=== PATIENT | female | born 1995 | race Hispanic/Latino ===

== ENCOUNTER 2017-01-14 21:22 | Emergency (ER) | payer BC, SELFPAY ==
[2017-01-14 21:38] LABS: Bilirubin Negative (Negative); Blood, Urine Large (Negative); Glucose, Urine (Dipstick) Negative (Negative); Ketone, Urine Negative (Negative); Nitrite Positive (Negative); Protein, Urine (Dipstick) 100 mg/dL (Neg-Trace)
[2017-01-14 21:43] LABS: Bacteria/HPF 2+ HPF (None Seen); Oval Fat Bodies/HPF 1+ HPF (None Seen)
[2017-01-14] MEDS ORDERED: cefTRIAXone\\ROCEPHIN 1 GM VIAL ONE (22:36)
[2017-01-14] MEDS ORDERED: Ondansetron HCl/PF 4 MG/2 ML Vial ONE (22:36)
[2017-01-14] MEDS ORDERED: Ketorolac Tromethamine 30 MG/ML VIAL ONE (22:36)
[2017-01-14 22:39] LABS: #Eosinphils 0.2 thou/uL (0.0-0.7); #Lymphocytes 2.5 thou/uL (1.20-3.40); #Monocytes 0.9 thou/uL (0.11-0.59); #Neutrophils 10.4 thou/uL (1.40-6.50); %Basophils 0.3 % (0.0-1.0); %Eosinophils 1.3 % (0.0-10.0); %Lymphocytes 17.8 % (21.0-51.0); %Monocytes 6.6 % (0.0-10.0); Hematocrit 39.9 % (36.0-47.0); Mean Platelet Volume 5.8 fL (7.4-10.4); Red Blood Cell (RBC) Count 4.38 mill/uL (4.20-5.40)
[2017-01-14 22:55] LABS: ALT (SGPT) 22 U/L (8-55); AST (SGOT) 14 U/L (5-34); Alkaline Phosphatase 85 U/L (40-150); Anion Gap 14 mmol/L (10-20); BUN (Urea Nitrogen) 7 mg/dL (7.0-18.7); Bilirubin, Total 0.4 mg/dL (0.2-1.2); Calc. Creatinine Clearance 0 mL/min (70-130); Calcium 9.8 mg/dL (7.8-10.44); Carbon Dioxide 25 mmol/L (22-29); Chloride 105 mmol/L (98-107); Estimated GFR-MDRD Greater than 90; Globulin 4.1 g/dL (2.4-3.5); Protein, Total 7.8 g/dL (6.0-8.3)
== END 2017-01-15 00:05 | disposition home or self-care (01) ==
LOC: SCSER 21:22
DX: N39.0 Urinary tract infection, site not specified (principal)
CPT/HCPCS: 80053; 81003; 81015; 81025; 85025; 87077; 87086; 87186; 96361; 96365; 96372; 96375; J0696; J1885; J2270; J2405

== ENCOUNTER 2017-04-18 12:54 | Emergency (ER) | payer BC ==
[~2017-04-18 12:54] MED LIST: Iopamidol 370 76% 100 ML VIAL ONE
[2017-04-18 13:44] LABS: Bilirubin Negative (Negative); Blood, Urine Negative (Negative); Clarity Slightly Cloudy (Clear); Glucose, Urine (Dipstick) Negative (Negative); Leukocyte Trace (Negative); Nitrite Negative (Negative); Protein, Urine (Dipstick) Negative (Neg-Trace); Specific Gravity, Urine 1.015 (1.005-1.030); Urobilinogen 0.2 mg/dL (0.2-1.0)
[2017-04-18 13:47] LABS: Bacteria/HPF 2+ HPF (None Seen); RBC/HPF 0-3 HPF (0-3)
[2017-04-18 14:02] LABS: BHCG - Serum Negative (NEGATIVE); Pregs Control Background? CLEAR/WHITE (CLR/WHITE); Pregs Control Bar Appear? YES (CONTROL BAR)
[2017-04-18 14:10] LABS: Hemoglobin 14.1 g/dL (12.0-16.0); Mean Corpuscular HGB CONC 34.5 g/dL (32.0-36.0); Mean Corpuscular Hemoglobin 30.4 pg (27.0-31.0); Mean Corpuscular Volume 88.2 fl (81.0-99.0); Mean Platelet Volume 6.6 fL (7.4-10.4); Platelet Count 330 thou/uL (130-400); RBC Distribution Width 12.1 % (11.5-14.5); Red Blood Cell (RBC) Count 4.63 mill/uL (4.20-5.40)
[2017-04-18 14:11] LABS: Band 6 % (5-11); Lymphocytes 31 % (21-51); MDiff Complete? YES; Monocytes 2 % (0-10); Neutrophil 56 % (42-75); PLT Morphology Comment Appears Adequate; Reactive Lymphocytes 5 % (0-10); Vacuoles SLIGHT
[2017-04-18] MEDS ORDERED: Ketorolac Tromethamine 30 MG/ML VIAL ONE (14:11)
[2017-04-18] MEDS ORDERED: Ondansetron HCl/PF 4 MG/2 ML Vial ONE (14:11)
[2017-04-18 14:27] LABS: ALT (SGPT) 46 U/L (8-55); AST (SGOT) 28 U/L (5-34); Albumin 3.9 g/dL (3.5-5.0); Alkaline Phosphatase 70 U/L (40-150); Anion Gap 15 mmol/L (10-20); BUN (Urea Nitrogen) 8 mg/dL (7.0-18.7); Bilirubin, Total 0.4 mg/dL (0.2-1.2); Calc. Creatinine Clearance 0 mL/min (70-130); Calcium 10.2 mg/dL (7.8-10.44); Carbon Dioxide 27 mmol/L (22-29); Chloride 102 mmol/L (98-107); Estimated GFR-MDRD Greater than 90; Globulin 4.2 g/dL (2.4-3.5); Glucose 103 mg/dL (70-105); Potassium 3.8 mmol/L (3.5-5.1); Protein, Total 8.1 g/dL (6.0-8.3); Sodium 140 mmol/L (136-145)
--- NOTE | 2017-04-18 15:14 | CT ---
CT ABDOMEN AND PELVIS WITH IV CONTRAST: HISTORY: Abdominal pain. COMPARISON: 03/16/11. FINDINGS: Lung bases are clear. The liver, spleen, kidneys, adrenal glands, and pancreas are within normal ho its. Urinary bladder is unremarkable. Lack of oral contrast limits evaluation of the bowel. There is no evidence of obstruction. Appendix is not inflamed. Minimal free fluid is present within the pelvis. IMPRESSION: No significant abnormalities are demonstrated. POS: [facility]
== END 2017-04-18 15:45 | disposition home or self-care (01) ==
LOC: SCSER 12:54
DX: R10.31 Right lower quadrant pain (principal)
CPT/HCPCS: 74177; 80053; 81003; 81015; 84703; 85025; 87077; 87086; 96361; 96374; J1885; J2405

== ENCOUNTER 2017-12-06 14:51 | Emergency (ER) | payer BC ==
[2017-12-06 15:10] LABS: Bilirubin Negative (Negative); Blood, Urine Negative (Negative); Clarity Clear (Clear); Glucose, Urine (Dipstick) Negative (Negative); Leukocyte Negative (Negative); Nitrite Negative (Negative); Protein, Urine (Dipstick) Negative (Neg-Trace); Urobilinogen 0.2 mg/dL (0.2-1.0)
[2017-12-06 15:11] LABS: Pregnancy Test - Urine (BHCG) Negative (Negative); Pregu Control Background? CLEAR/WHITE (CLR/WHITE); Pregu Control Bar Appear? YES (CONTROL BAR)
[2017-12-06] MEDS ORDERED: Ketorolac Tromethamine 30 MG/ML VIAL ONE (15:55)
[2017-12-06 16:15] LABS: #Eosinphils 0.2 thou/uL (0.0-0.7); #Monocytes 0.4 thou/uL (0.11-0.59); #Neutrophils 3.5 thou/uL (1.40-6.50); %Basophils 0.5 % (0.0-1.0); %Eosinophils 2.1 % (0.0-10.0); %Lymphocytes 41.8 % (21.0-51.0); %Monocytes 5.7 % (0.0-10.0); %Neutrophils 49.9 % (42.0-75.0); Hemoglobin 13.8 g/dL (12.0-16.0); Mean Corpuscular HGB CONC 33.7 g/dL (32.0-36.0); Mean Corpuscular Hemoglobin 29.9 pg (27.0-31.0); Mean Corpuscular Volume 88.9 fL (78.0-98.0); Mean Platelet Volume 7.1 fL (7.4-10.4); Platelet Count 301 thou/uL (130-400); RBC Distribution Width 11.8 % (11.5-14.5); White Blood Cell (WBC) Count 7.1 thou/uL (4.8-10.8)
[2017-12-06 16:39] LABS: ALT (SGPT) 47 U/L (8-55); AST (SGOT) 27 U/L (5-34); Alkaline Phosphatase 75 U/L (40-150); Anion Gap 14 mmol/L (10-20); BUN (Urea Nitrogen) 8 mg/dL (7.0-18.7); Bilirubin, Total 0.6 mg/dL (0.2-1.2); Calc. Creatinine Clearance 0 mL/min (70-130); Carbon Dioxide 25 mmol/L (22-29); Chloride 106 mmol/L (98-107); Estimated GFR-MDRD Greater than 90; Globulin 4.2 g/dL (2.4-3.5); Glucose 113 mg/dL (70-105); Lipase 30 U/L (8-78); Potassium 3.6 mmol/L (3.5-5.1); Protein, Total 8.2 g/dL (6.0-8.3); Sodium 141 mmol/L (136-145)
--- NOTE | 2017-12-06 16:58 | CT ---
CT ABDOMEN AND PELVIS WITH IV CONTRAST: 12/06/17 HISTORY: Abdomen and pelvic pain. COMPARISON: 04/18/17. FINDINGS: Lung bases are clear. The liver, spleen, kidneys, adrenal glands, and pancreas have a normal CT appea garret. No enlarged lymph nodes or free fluid. Urinary bladder is unremarkable. Appendix is not inflam ed. IMPRESSION: No significant abnormalities are demonstrated. POS: [facility]
== END 2017-12-06 17:17 | disposition home or self-care (01) ==
LOC: SCSER 14:51
DX: M54.5 Low back pain (principal); R10.32 Left lower quadrant pain
CPT/HCPCS: 74177; 80053; 81003; 81025; 83690; 85025; 96361; 96374; J1885

== ENCOUNTER 2019-03-06 19:10 | Emergency (ER) | payer BC, SELFPAY ==
[2019-03-06 19:57] LABS: #Eosinphils 0.1 thou/uL (0.0-0.7); #Lymphocytes 2.4 thou/uL (1.20-3.40); #Monocytes 0.7 thou/uL (0.11-0.59); #Neutrophils 3.7 thou/uL (1.40-6.50); %Basophils 0.1 % (0.0-1.0); %Eosinophils 1.2 % (0.0-10.0); %Lymphocytes 34.6 % (21.0-51.0); %Monocytes 9.5 % (0.0-10.0); %Neutrophils 54.6 % (42.0-75.0); Hemoglobin 12.8 g/dL (12.0-16.0); Mean Corpuscular HGB CONC 34.3 g/dL (32.0-36.0); Mean Corpuscular Hemoglobin 30.6 pg (27.0-31.0); Mean Corpuscular Volume 89.2 fL (78.0-98.0); Mean Platelet Volume 6.5 fL (7.4-10.4); Platelet Count 271 thou/uL (130-400); RBC Distribution Width 11.7 % (11.5-14.5); Red Blood Cell (RBC) Count 4.17 mill/uL (4.20-5.40); White Blood Cell (WBC) Count 6.8 thou/uL (4.8-10.8)
[2019-03-06 20:04] LABS: BHCG - Serum POSITIVE (NEGATIVE); Pregs Control Background? CLEAR/WHITE (CLR/WHITE); Pregs Control Bar Appear? YES (CONTROL BAR)
[2019-03-06 20:17] LABS: ALT (SGPT) 16 U/L (8-55); AST (SGOT) 12 U/L (5-34); Albumin 3.4 g/dL (3.5-5.0); Alkaline Phosphatase 50 U/L (40-110); Anion Gap 9 mmol/L (10-20); BUN (Urea Nitrogen) 6 mg/dL (7.0-18.7); Bilirubin, Total 0.5 mg/dL (0.2-1.2); Calc. Creatinine Clearance 0 mL/min (70-130); Calcium 9.3 mg/dL (7.8-10.44); Carbon Dioxide 27 mmol/L (22-29); Chloride 101 mmol/L (98-107); Estimated GFR-MDRD Greater than 90; Globulin 3.6 g/dL (2.4-3.5); Glucose 77 mg/dL (70-105); Lipase 24 U/L (8-78); Potassium 3.8 mmol/L (3.5-5.1); Sodium 133 mmol/L (136-145)
[2019-03-06 21:34] LABS: Bilirubin Negative (Negative); Blood, Urine Negative (Negative); Clarity Clear (Clear); Glucose, Urine (Dipstick) Normal (Negative); Leukocyte Negative Leu/uL (Negative); Nitrite Negative (Negative); Protein, Urine (Dipstick) Negative (Neg-Trace); Urobilinogen 6 mg/dL (Less than 2)
--- NOTE | 2019-03-06 22:33 | ULT ---
US Pelvic W Doppler HISTORY: Right lower quadrant pain. COMPARISON: None. FINDINGS: Real-time imaging of the pelvis was obtained transabdominally. This shows a single viable i ntrauterine . The heart rate is 165 bpm. The crown to rump length measurements are 5.6 cm corresponding to 12 weeks 1 day. Placenta appears be localizing more posterior difficult to as sess at this stage of gestation. The right and left adnexa are normal in appearance. Doppler evaluation with spectral analysis: Normal flow shown to the ovaries. The appendix is not identified. IMPRESSION: Single viable intrauterine crown-rump length measurements of 12 weeks 1 day wit h an estimated date of delivery of 09/17/2019
== END 2019-03-06 23:25 | disposition home or self-care (01) ==
LOC: ERS 19:10
DX: O99.89 Other specified diseases and conditions complicating pregnancy, childbirth and the puerperium (principal); R10.30 Lower abdominal pain, unspecified; Z3A.19 19 weeks gestation of pregnancy
CPT/HCPCS: 36415; 76856; 80053; 81003; 83690; 84702; 84703; 85025; 86900; 86901; 93976

== ENCOUNTER 2019-09-11 06:35 | Outpatient (CLI) | payer OTHER ==
[2019-09-12 12:38] LABS: SARS-CoV-2 MS2 Positive; SARS-CoV-2 N Gene Negative; SARS-CoV-2 S Gene Negative; SARS-CoV-2 orf1ab Negative
== END 2019-09-11 06:36 | disposition home or self-care (01) ==
LOC: LABSCS 06:35
PROVIDERS: ATTEND Obstetrics & Gynecology
DX: Z01.812 Encounter for preprocedural laboratory examination (principal); Z11.59 Encounter for screening for other viral diseases
CPT/HCPCS: 87635; U0003

== ENCOUNTER 2019-09-12 17:44 | Inpatient (IN) | payer OTHER ==
[~2019-09-12 17:44] MED LIST changes: +Bupivacaine 0.25% HCL 30 ML VIAL ONE; -Iopamidol 370 76% 100 ML VIAL ONE
[2019-09-12 18:25] VITALS: BMI 43.3
--- NOTE | 2019-09-12 18:33 | PDOC.FPRHP ---
- Allergies/Adverse Reactions Allergies Allergy/AdvReac Type Severity Reaction Status Date / Time No Known Allergies Allergy Unverified 09/12/19 18:25 - Home Medications Medication Instructions Recorded Confirmed Type Pnv No.103/Folic/Om3s/Fish Oil 1 each PO DAILY 09/12/19 09/12/19 History [ Gummies] - History PMHx: PSHx: FHx: Social: - Vital signs BP: [] HR: [] RR: [] Tmax: [] Pox: []% on [] Wt: [] FMR H&P: Upper Level - Plan Date/Time: 09/12/19 1833 I, [], have evaluated this patient and agree with findings/plan as outlined by civil engineering intern resident. Pertinent changes/additions are listed here.
--- NOTE | 2019-09-12 18:38 | PDOC.LDHP ---
Labor and Delivery H&P Chief complaint: contractions HPI: Pt is a 24 yo at 39.1 wks who presents for contractions starting at 0600 on 09/12/19. Over the last 2 hours she has an increase in contractions, she states every 3-5 mins. She denies LOF, vaginal bleeding, COSTA, SOB, chest pain, LE edema, RUQ pain. Endorsed clear/white discharge. She was checked in the office this previous Saturday and was 1.5 cm. CALIBRATOR BAROMETERS: Marissa GBS Positive Due date: 09/18/19 Grav: 2 Para: 1 OB History Details: Denies significant OB history Prior Term 11 years ago Current complications: none Past Medical History: denies Current medications: pre-natacha vitamins Previous surgical history: none Allergies/Adverse Reactions: Allergies Allergy/AdvReac Type Severity Reaction Status Date / Time No Known Allergies Allergy Unverified 09/12/19 18:25 Social history: none - Physical Exam Vital signs reviewed and normal: yes General: breathing through contractions Heart: RRR Lungs: CTAB Abdomen: NTTP Extremeties: trace edema FHT: category 1 [place] contractions every: q7min - Vaginal Exam cm dilated: 3 Effacement: 50% (60%) Station: -3 - OB Labs Blood type: O RH: positive Antibody Screen: negative HIV: negative RPR: negative HEPSAg: negative GBS: positive Rubella: immune Additional Labs: GCCH negative Pap - Abnormal; ASCUS HPV Positive Genetic Screening: [facility] - Plan Plan: observation in L&D -: Pt is a 24 yo at 39.1 wks who presents for contractions: # Term IUP # Contractions /-3. Cat 1 strip. - recheck in q2hrs. If pt makes change then will keep pt for labor. If no change will send home. She has an induction scheduled for 09/15/19. # GBS Positive - will need penicillin Dispo: observe for progression of labor
--- NOTE | 2019-09-12 19:00 | PDOC.BPN ---
- Brief Progress Note OBGYN Attending Patient in triage, first seen by Dr Atkins Patient of Dr Ann 39 weeks 1 day with scheduled IOL on Saturday CX 3cm...will place iin labor OBS Please see full H&P by Dr Atkins
[2019-09-12] MEDS ORDERED: hydrALAZINE 20 MG/ML VIAL SLOW IVP PRN ×2 (19:11→21:46)
[2019-09-12] MEDS ORDERED: Butorphanol Tartrate 1 MG/ML VIAL ONE (21:07)
[2019-09-12] MEDS ORDERED: Butorphanol Tartrate 1 MG/ML VIAL SLOW IVP SCH (21:15)
[2019-09-12] MEDS ORDERED: Promethazine HCl 25 MG/ML VIAL IM PRN (21:46)
[2019-09-12] MEDS ORDERED: Ondansetron PF 4 MG/2 ML Vial IVP PRN (21:46)
[2019-09-12] MEDS ORDERED: Docusate 100 MG CAP PO PRN (21:46)
[2019-09-12] MEDS ORDERED: Acetaminophen 500 MG TAB PO PRN (21:46)
[2019-09-12] MEDS ORDERED: Butorphanol Tartrate 1 MG/ML VIAL SLOW IVP PRN (21:46)
--- NOTE | 2019-09-12 21:48 | PDOC.BPN ---
- Brief Progress Note CX with slight cervical change to close to 4cm per Dr Atkins. Patient with increased CTX discomfort every 2-3 minutes or so. FHTS reassurring. Vitals wnl WE will direct admit to Dr Ann for 39 week early labor, pain control. GBS pos
[2019-09-12] MEDS ORDERED: Penicillin G Potassium 5 MILL.UNITS in Sodium Chloride 0.9% 100 ML IVPB SCH (22:00)
[2019-09-12 23:44] LABS: Hemoglobin 13.1 g/dL (12.0-16.0); Mean Corpuscular HGB CONC 34.5 g/dL (32.0-36.0); Mean Corpuscular Hemoglobin 31.9 pg (27.0-31.0); Mean Corpuscular Volume 92.7 fL (78.0-98.0); Mean Platelet Volume 7.1 fL (7.4-10.4); Platelet Count 287 thou/uL (130-400); RBC Distribution Width 13.1 % (11.5-14.5); Red Blood Cell (RBC) Count 4.11 mill/uL (4.20-5.40); White Blood Cell (WBC) Count 15.6 thou/uL (4.8-10.8)
[2019-09-13] MEDS ORDERED: Fentanyl 4 mcg/Bup 0.1% Cadd 100 ML ONE (00:13)
[2019-09-13 00:22] LABS: Syphilis Antibody Nonreactive (Nonreactive); Syphilis Antibody Index 0.24 S/CO (<1.00 Non-Reactive)
[2019-09-13 00:25] LABS: HBSAg Index 0.14 S/CO (0-0.99); Hep B Surf Ag Non-Reactive S/CO (NonReactive)
[2019-09-13] MEDS ORDERED: NS / Oxytocin 40 units/1000ml 1,000 ML IV PRN (00:28)
[2019-09-13] MEDS ORDERED: Lidocaine 1% (PF) 30 ML VIAL SC PRN (00:28)
[2019-09-13] MEDS ORDERED: Carboprost 250 MCG/ML AMP IM PRN (00:28)
[2019-09-13] MEDS ORDERED: Misoprostol 200 MCG TAB PR PRN (00:28)
[2019-09-13] MEDS ORDERED: Methylergonovine 0.2 MG/ML VIAL IM PRN ×2 (00:28→08:32)
[2019-09-13] MEDS ORDERED: Ibuprofen 800 MG TAB PO PRN (00:28)
[2019-09-13] MEDS ORDERED: Diphenoxylate HCl/Atropine Tablet PO PRN ×2 (00:28)
[2019-09-13] MEDS ORDERED: Lactated Ringer's 1,000 ML IV SCH (00:30)
[2019-09-13] MEDS ORDERED: Promethazine HCl 25 MG SUPP PR PRN (01:08)
[2019-09-13] MEDS ORDERED: diphenhydrAMINE 25 MG CAP PO PRN ×2 (01:08→08:32)
[2019-09-13] MEDS ORDERED: Naloxone HCl 0.4 mg/ml Vial IVP PRN ×4 (01:08)
[2019-09-13] MEDS ORDERED: Lactated Ringer's 500 ML IV PRN (01:08)
[2019-09-13] MEDS ORDERED: diphenhydrAMINE 50 MG/ML VIAL IM PRN (01:08)
[2019-09-13] MEDS ORDERED: diphenhydrAMINE 50 MG/ML VIAL IVP PRN ×2 (01:08)
[2019-09-13] MEDS ORDERED: Bupivacaine 0.25% 10 ML VIAL EPIDURAL PRN (01:08)
[2019-09-13] MEDS ORDERED: Ketorolac Tromethamine 30 MG/ML VIAL IVP PRN (01:08)
[2019-09-13] MEDS ORDERED: Promethazine HCl 25 MG/ML VIAL IM PRN ×3 (01:08→08:32)
[2019-09-13] MEDS ORDERED: EPHEDRINE 25 MG/5 ML SYRINGE SLOW IVP PRN (01:08)
[2019-09-13] MEDS ORDERED: HYDROcodone/Acetaminophen 5/325 mg Tablet PO PRN ×3 (01:08→08:32)
[2019-09-13] MEDS ORDERED: Acetaminophen 325 MG TAB PO PRN (01:08)
[2019-09-13] MEDS ORDERED: Ondansetron PF 4 MG/2 ML Vial IVP PRN ×3 (01:08→08:32)
[2019-09-13] MEDS ORDERED: Zolpidem Tartrate 5 MG TAB PO PRN ×2 (01:08→08:32)
[2019-09-13] MEDS ORDERED: Fentanyl 4 mcg/Bupivacaine 0.1% Cassette 100 ML EPIDURAL SCH (01:15)
[2019-09-13] MEDS ORDERED: Communication Order-Pharmacy FS SCH ×3 (01:15)
[2019-09-13] MEDS ORDERED: Fentanyl 5 mcg/Bupivacaine 0.075% Cassette 100 ML EPIDURAL SCH (01:15)
[2019-09-13] MEDS: Penicillin G 2.5 MILL.units 2.5 MILL.UNITS in Premix Bag 1 BAG IVPB SCH ×2 (04:03→08:41)
[2019-09-13] MEDS ORDERED: Lidocaine 1% (PF) 30 ML VIAL ONE (04:37)
[2019-09-13] MEDS ORDERED: NS / Oxytocin 40 units/1000ml 1,000 ML ONE (04:37)
[2019-09-13] MEDS ORDERED: hydrALAZINE 20 MG/ML VIAL SLOW IVP PRN (08:32)
[2019-09-13] MEDS ORDERED: Bisacodyl 10 MG SUPP PR PRN (08:32)
[2019-09-13] MEDS ORDERED: Lanolin Ointment 7 GM TUBE TOP PRN (08:32)
[2019-09-13] MEDS ORDERED: NS / Oxytocin 40 units/1000ml 1,000 ML IV SCH (08:32)
[2019-09-13] MEDS ORDERED: Milk Of Magnesia 30 ML UDCUP PO PRN (08:32)
[2019-09-13] MEDS ORDERED: Misoprostol 200 MCG TAB VAG PRN (08:32)
[2019-09-13] MEDS ORDERED: Preparation H Ointment 28 GM TUBE PR PRN (08:32)
[2019-09-13] MEDS ORDERED: Adacel (T-DAP) 0.5 ML SYRINGE IM ONE (08:32)
[2019-09-13] MEDS ORDERED: Measles/Mumps/Rubella 10 MCG/0.5 ML VIAL SC ONE (08:32)
[2019-09-13] MEDS ORDERED: Varicella virus, LIVE 0.5 ML VIAL SC ONE (08:32)
[2019-09-13] MEDS ORDERED: Benzocaine-Menthol 82.5 ML CAN TOP PRN (08:32)
[2019-09-13] MEDS: Docusate Calcium (SURFAK) 240 MG CAP PO SCH ×2 (11:23→21:50)
[2019-09-13] MEDS: Prenatal Vitamin 1 TAB PO SCH (11:24)
[2019-09-13] MEDS: Ibuprofen 800 MG TAB PO SCH ×2 (13:30→21:50)
[2019-09-13] MEDS: Ferrous Sulfate 325 MG TAB PO SCH (14:24)
[2019-09-14 05:13] LABS: Hemoglobin 12.1 g/dL (12.0-16.0); Mean Corpuscular Hemoglobin 32.2 pg (27.0-31.0); Mean Corpuscular Volume 94.9 fL (78.0-98.0); Mean Platelet Volume 6.8 fL (7.4-10.4); Platelet Count 241 thou/uL (130-400); RBC Distribution Width 13.2 % (11.5-14.5); Red Blood Cell (RBC) Count 3.76 mill/uL (4.20-5.40); White Blood Cell (WBC) Count 11.7 thou/uL (4.8-10.8)
[2019-09-14] MEDS: Ibuprofen 800 MG TAB PO SCH (05:24)
[2019-09-14 08:15] VITALS: BP 120/70; TEMP 98.1
[2019-09-14] MEDS: Ferrous Sulfate 325 MG TAB PO SCH (09:37)
[2019-09-14] MEDS: Docusate Calcium (SURFAK) 240 MG CAP PO SCH (10:01)
[2019-09-14] MEDS: Prenatal Vitamin 1 TAB PO SCH (10:01)
--- NOTE | 2019-09-14 12:31 | PDOC.PP ---
Post Progress Note Post Day #: 1 PO intake tolerated: yes Flatus: yes Ambulation: yes Vital Signs (12 hours) Temp Pulse Resp BP 09/14/19 08:03 98.1 F 78 18 120/70 Weight Weight 222 lb - Physical Examination General: NAD Cardiovascular: no m/r/g, RRR Respiratory: clear to auscultation bilaterally, non-labored breathing Abdominal: + bowel sounds, lochia, no distention Extremities: negative homans (B) Neurological: no gross focal deficits Psychiatric: A&Ox3, normal affect (DC home today) Result Diagrams: 09/14/19 05:07 Additional Labs: Post Labs Blood Type O POSITIVE 09/12/19 23:36 Hep Bs Antigen Non-Reactive S/CO (NonReactive) 09/12/19 23:36
--- NOTE | 2019-09-14 20:52 | DN ---
DATE OF PROCEDURE: 09/13/2019 TIME OF SERVICE: At 0757 hours [place] Daylight Savings Time. PREOPERATIVE DIAGNOSIS: Intrauterine at 39 weeks and 2 days with a spontaneous onset of labor. POSTOPERATIVE DIAGNOSIS: Intrauterine at 39 weeks and 2 days with a spontaneous onset of labor. PROCEDURE PERFORMED: Spontaneous vaginal delivery over a first-degree laceration of the perineum. FINDINGS: Viable female infant weighing 3291 g. Apgars of 8 and 9. QUANTITATIVE BLOOD LOSS: 100 mL. COMPLICATIONS: None. PROCEDURE IN DETAIL: The patient presented to [facility] where she was admitted to the labor and delivery service. The patient underwent a normal and uneventful labor with normal cervical dilatation until she was found to be completely dilated. She was then allowed to push and was able to bring the baby down and delivered the baby in a vertex presentation without difficulties. Once the head delivered in occiput anterior position, the shoulders followed spontaneously along with the rest of the baby's body. Once out the baby's mouth and nose were bulb suctioned. The cord was clamped and cut and baby was handed to waiting attendants. Cord blood was collected. Gentle fundal massage was performed and the placenta delivered intact without problems. Hemostasis was assured. Quantitative blood loss was calculated. Inspection of the cervix, vaginal vault, and perineum did not reveal any lacerations needing suturing. Once again, hemostasis was within normal limits and the patient was allowed to recover in the labor and delivery room. Baby went to nursery. Job ID: [id number]
== END 2019-09-14 15:10 | disposition home or self-care (01) | DRG 807 ==
LOC: L&D/OP 17:44 → L&D 21:10 → 3SW 09-13 10:42
PROVIDERS: ADMIT Obstetrics & Gynecology; ATTEND Obstetrics & Gynecology
PROC: 10E0XZZ Delivery of Products of Conception, External Approach (ICD-10-PCS; principal; 2019-09-14)
PROC: 10907ZC Drainage of Amniotic Fluid, Therapeutic from Products of Conception, Via Natural or Artificial Opening (ICD-10-PCS; 2019-09-14)
PROC: 3E033VJ Introduction of Other Hormone into Peripheral Vein, Percutaneous Approach (ICD-10-PCS; 2019-09-14)
PROC: 3E0P7VZ Introduction of Hormone into Female Reproductive, Via Natural or Artificial Opening (ICD-10-PCS; 2019-09-14)
DX: O99.824 Streptococcus B carrier state complicating childbirth (principal); Z37.0 Single live birth; O70.0 First degree perineal laceration during delivery; Z3A.39 39 weeks gestation of pregnancy
CPT/HCPCS: 36415; 85027; 86780; 86850; 86900; 86901; 87340; J0595; J2001; J2540; J3490; S0020